=== PATIENT | male | born 1970 | race Caucasian/White ===

== ENCOUNTER 2020-01-03 13:00 | Outpatient (REF) | payer OTHER, SELFPAY | END 2020-01-03 13:01 | LOC: HO.WFDLNP 13:00 | PROVIDERS: Visit Provider Hospitalist | DX: Z20.828 Contact with and (suspected) exposure to other viral communicable diseases (principal) | CPT/HCPCS: U0003 ==

== ENCOUNTER 2020-02-20 13:37 | Outpatient (REF) | payer OTHER, SELFPAY | END 2020-02-20 13:38 | disposition home or self-care (01) | LOC: HO.LNP 13:37 | PROVIDERS: Visit Provider Family Medicine | DX: Z20.828 Contact with and (suspected) exposure to other viral communicable diseases (principal) | CPT/HCPCS: U0003 ==